=== PATIENT | female | born 1985 | race Caucasian/White ===

== ENCOUNTER 2022-12-11 23:21 | Emergency (ER) | payer SELFPAY ==
[~2022-12-11] VITALS: Ht 160 cm; Wt 79.4 kg
[2022-12-12 00:29] VITALS: BP_SYST 140; PULSE 73; RESP 17; TEMP 97.8; O2SAT 99
[2022-12-12 01:15] LABS: BILIRUBIN,URINE NEGATIVE (NEGATIVE); CLARITY/URINE CLEAR (CLEAR); COLOR,URINE YELLOW (YELLOW); GLUCOSE,URINE NEGATIVE (NEGATIVE); KETONES,URINE NEGATIVE (NEGATIVE); PH,URINE 5.5 (5.0-8.0); PROTEIN URINE NEGATIVE (NEGATIVE)
[2022-12-12 01:16] LABS: BLOOD, URINE NEGATIVE (NEGATIVE); LEUKOCYTE ESTERASE ,URINE NEGATIVE (NEGATIVE); NITRITE, URINE NEGATIVE (NEGATIVE); UROBILINOGEN,URINE 0.2 (0.2-1.0)
[2022-12-12] MEDS ORDERED: KETOROLAC TROMETHAMINE 15 MG VIAL IM ONE (01:45)
[2022-12-12 01:55] LABS: HCG,QUAL RESULT NEGATIVE (NEGATIVE)
[2022-12-12 02:13] LABS: CREATININE 0.7 mg/dL (0.55-1.30); POTASSIUM 4.6 mmol/L (3.5-5.1)
[2022-12-12 02:18] LABS: ALBUMIN 3.7 g/dL (3.4-4.8); TOTAL BILIRUBIN 0.3 mg/dL (0.0-1.0); TOTAL PROTEIN, SERUM 7.9 g/dL (6.4-8.3)
[2022-12-12 02:29] LABS: BASOPHILS % (AUTO) 0.5 % (0.0-2.0); EOSINOPHILS # (AUTO) 0.2 K/uL (0.0-0.4); EOSINOPHILS % (AUTO) 2.9 % (0.0-4.0); HEMATOCRIT 42.3 % (36-48); HEMOGLOBIN 14.5 g/dL (12.0-16.0); LYMPHOCYTES # (AUTO) 2.7 K/uL (1.0-5.5); LYMPHOCYTES % (AUTO) 37.4 % (20.5-51.5); MEAN CORPUSCULAR HEMOGLOBIN 30 pg (27-31); MEAN CORPUSCULAR HGB CONC 34 % (32-36); MEAN CORPUSCULAR VOLUME 88 fL (79.0-98.0); MONOCYTES # (AUTO) 0.9 K/uL (0.0-1.0); MONOCYTES % (AUTO) 12.9 % (1.7-9.3); NEUTROPHILS # (AUTO) 3.3 K/uL (1.8-7.7); NEUTROPHILS % (AUTO) 46.3 % (40.0-70.0); PLATELET COUNT (AUTO) 231 K/uL (130-430); RED BLOOD CELL COUNT(AUTO) 4.78 MIL/uL (4.2-6.2); WHITE BLOOD COUNT (AUTO) 7.1 K/uL (4.8-10.8)
[2022-12-12] MEDS ORDERED: IBUP-1969 PO (04:30)
[2022-12-12 05:00] VITALS: BP_SYST 111; PULSE 76; RESP 17; TEMP 97.8; O2SAT 97
== END 2022-12-12 05:00 | disposition home or self-care (01) ==
LOC: SED 23:21
DX: N83.202 Unspecified ovarian cyst, left side (principal); N83.201 Unspecified ovarian cyst, right side; R10.2 Pelvic and perineal pain; Z79.899 Other long term (current) drug therapy
CPT/HCPCS: 99285; 80053; 84703; 85025; 36415; 81003; 76830; 76857; 96372; J1885

== ENCOUNTER 2024-01-13 17:33 | Emergency (ER) | payer BC ==
[~2024-01-13] VITALS: Ht 160 cm; Wt 83.9 kg
[~2024-01-13 17:33] MED LIST: IBUP-1969 PO
[2024-01-13 17:42] VITALS: BP_SYST 149; PULSE 79; RESP 18; TEMP 98.3; O2SAT 97
[2024-01-13] MEDS ORDERED: AUG875 PO (18:15)
[2024-01-13] MEDS ORDERED: NAPR-1172 PO (18:15)
[2024-01-13] MEDS: KETOROLAC TROMETHAMINE 60 MG/2 ML VIAL IM ONE (18:21)
[2024-01-13 18:37] VITALS: BP_SYST 139; PULSE 76; RESP 18; TEMP 98.3; O2SAT 98
== END 2024-01-13 18:30 | disposition home or self-care (01) ==
LOC: SED 17:33
DX: J32.8 Other chronic sinusitis (principal); Z79.899 Other long term (current) drug therapy; Z79.2 Long term (current) use of antibiotics
CPT/HCPCS: 99283; 96372; J1885